=== PATIENT | male | born 1985 | race Caucasian/White ===

== ENCOUNTER 2022-07-30 06:13 | Emergency (ER) | payer SELFPAY ==
[2022-07-30] MEDS ORDERED: Ondansetron 4 MG Tab.DIS PO ONE (06:14)
[2022-07-30] MEDS ORDERED: LORazepam 0.5 MG Tab PO ONE (06:14)
[2022-07-30] MEDS ORDERED: Thiamine 200 MG/2 ML MDV IVPUSH ONE (06:41)
[2022-07-30] MEDS ORDERED: LORazepam 2 MG/ML SDV IVPUSH ONE (06:43)
[2022-07-30] MEDS ORDERED: Folic Acid 50 MG/10 ML MDV IV STA (06:43)
[2022-07-30] MEDS ORDERED: Sodium Chloride 0.9% 1,000 ML IV ONE (07:03)
[2022-07-30 07:10] LABS: ESTIMATED GFR 113 mL/min (>60)
[2022-07-30 07:14] LABS: ACETAMINOPHEN < 2 ug/mL (<2)
[2022-07-30] MEDS ORDERED: Lactated Ringers 1,000 ML IV ONE ×2 (07:29→08:37)
[2022-07-30] MEDS ORDERED: Magnesium Sulfate/Water 2 GM in Premix Bag 1 BAG IV ONE (08:37)
[2022-07-30] MEDS ORDERED: Folic Acid 1 MG Tab PO ONE (08:41)
[2022-07-30] MEDS ORDERED: Ondansetron 4 MG/2 ML SDV IVPUSH PRN (08:42)
[2022-07-30] MEDS ORDERED: LORazepam 1 MG Tab PO ONE (12:50)
[2022-07-30] MEDS ORDERED: Folic Acid 1 MG Tab ONE (12:53)
== END 2022-07-30 14:15 | disposition home or self-care (01) ==
LOC: FB.ED 06:13
DX: F10.230 Alcohol dependence with withdrawal, uncomplicated (principal); I10 Essential (primary) hypertension; E87.6 Hypokalemia; E83.42 Hypomagnesemia; Z91.030 Bee allergy status; Y90.0 Blood alcohol level of less than 20 mg/100 ml
CPT/HCPCS: 36415; 80053; 80143; 80179; 80307; 83690; 83735; 85025; 96361; 96365; 96366; 96375; 99284; A9270; J2060; J2405; J3411; J3475; J7030; J7120; Q0162